=== PATIENT | female | born 1970 | race Caucasian/White ===

== ENCOUNTER 2017-08-04 15:43 | Emergency (ER) | payer OTHER ==
[2017-08-04 15:53] VITALS: BP 103/71; PULSE 82; TEMP 98.4; BMI 27.4
--- NOTE | 2017-08-04 17:15 | PDOC ---
History of Present Illness - General Chief Complaint: Pain Stated Complaint: LEFT FOOT PAIN Time Seen by Provider: 08/04/17 16:10 History Source: Patient Exam Limitations: No Limitations - History of Present Illness Initial Comments: 08/04/17 17:10 CHIEF COMPLAINT: Left generalized ankle pain for two months. HISTORY OF PRESENT ILLNESS: Patient is a 46-year-old female, history of insulin- dependent diabetes , high cholesterol, patient presents with left ankle pain. Denies injury. Patient reports that she is ambulating she feels and instability in her ankle and it feels like it's popping. There is no erythema, edema or deformity, patient with steady gait. Occurred: reports: other (2 months) Severity: Yes: moderate Lower Extremity Pain Location: left: ankle Method of Injury: Yes: unknown Modifying Factors: improves with: None Lower Ext. Injury Location - Specific Injury Location Ankle: left pain Extremity Pain Location - Extremity Pain Location Extremity Pain Locations: left: ankle Past History - Past Medical History Allergies/Adverse Reactions: Allergies Allergy/AdvReac Type Severity Reaction Status Date / Time No Known Allergies Allergy Verified 08/04/17 15:54 Home Medications: Ambulatory Orders Insulin Glargine,Hum.rec.anlog [Lantus Solostar PEN -] 45 units SQ HS 10/23/13 Insulin Lispro [Humalog] 10 unit SQ BID 07/14/16 Lisinopril/Hydrochlorothiazide [Lisinopril-Hctz 20-12.5 mg Tab] 1 each PO ASDIR 08/04/17 Naproxen [Naprosyn -] 500 mg PO BID #14 tablet 08/04/17 COPD: No Diabetes: Yes (IDDM) - Surgical History Cardiac Surgery: Yes (1 stent) - Immunization History Immunization Up to Date: Yes - Suicide/Smoking/Psychosocial Hx Smoking History: Never smoked Have you smoked in the past 12 months: No Hx Alcohol Use: Yes (SOCIAL) Drug/Substance Use Hx: No Substance Use Type: None Review of Systems - Review of Systems Constitutional: No: Symptoms Reported Cardiac (ROS): No: Symptoms Reported ABD/GI: No: Symptoms Reported Musculoskeletal: Yes: Joint Pain. No: Joint Swelling, Muscle Pain, Muscle Weakness, Joint Stiffness Integumentary: No: Symptoms Reported, Bruising, Erythema Neurological: No: Paresthesia, Tingling, Tremors All Other Systems: Reviewed and Negative *Physical Exam - Vital Signs Last Vital Signs Temp Pulse Resp BP Pulse Ox 98.4 F 82 20 103/71 99 08/04/17 15:50 08/04/17 15:50 08/04/17 15:50 08/04/17 15:50 08/04/17 15:50 - Physical Exam General Appearance: Yes: Appropriately Dressed. No: Apparent Distress Respiratory/Chest: positive: Lungs Clear, Normal Breath Sounds Cardiovascular: positive: Regular Rhythm, Regular Rate Extremity: positive: Normal Capillary Refill, Normal Inspection, Normal Range of Motion. negative: Delayed Capillary Refill, Pedal Edema, Swelling, Erythema , Inflammation Integumentary: positive: Normal Color, Dry. negative: Erythema, Swelling, Ecchymosis, Bruising Neurologic: positive: Alert, Normal Mood/Affect, Normal Response, Motor Strength 11/24 ED Treatment Course - ADDITIONAL ORDERS Additional order review: Laboratory Results 08/04/17 16:22 Urine HCG, Qual Negative - RADIOLOGY Radiology Studies Ordered: Category Date Time Status ANKLE & FOOT-LEFT* [RAD] Stat Radiology 08/04/17 17:05 Ordered Medical Decision Making - Medical Decision Making 08/04/17 17:14 A/P: Patient is here for evaluation of chronic pain to left ankle. Patient denies any injury, there is no erythema edema or deformity. Patient admits to wearing flat shoes frequently which may be attributing to the pain. I will send patient for xray. 08/04/17 18:30 Wet read x-rays negative for acute fracture will DC patient home instructed to use shoes with better support, Gasper wrap. Follow up with orthopedics for chronic pain. I discussed the physical exam findings, ancillary test results and final diagnoses with the patient. I answered all of the patient's questions. The patient was satisfied with the care received and felt comfortable with the discharge plan and treatment plan. The patient will call to arrange follow-up and will return to the Emergency Department with any new, persisted or worsening symptoms. *DC/Admit/Observation/Transfer Diagnosis at time of Disposition: Ankle pain Qualifiers: Chronicity: acute Laterality: right Qualified Code(s): M25.571 - Pain in right ankle and joints of right foot - Discharge Dispostion Disposition: HOME Condition at time of disposition: Good Admit: No - Prescriptions Prescriptions: Naproxen [Naprosyn -] 500 mg PO BID #14 tablet - Referrals Referrals: Luis Pena [Primary Care Provider] - - Patient Instructions Printed Discharge Instructions: DI for Ankle Pain Additional Instructions: 1. Please return to the emergency department with any redness, swelling, increased pain, or any other concerns. 2. Keep gasper wrap on or support with more stable shoes. . 3. Please follow up in the office of Dr. Naylor within a week if pain persists. 4. No weightbearing 5. Ice and elevate when at rest. 6. Naprosynfor pain - Post Discharge Activity
== END 2017-08-04 18:40 | disposition home or self-care (01) ==
LOC: JERFT 15:43
DX: M25.572 Pain in left ankle and joints of left foot (principal); E11.9 Type 2 diabetes mellitus without complications; Z79.4 Long term (current) use of insulin; E78.00 Pure hypercholesterolemia, unspecified; Z95.5 Presence of coronary angioplasty implant and graft
CPT/HCPCS: 73610-TC-LT; 73630-TC-LT; 84703; 99281-25

== ENCOUNTER 2017-10-18 22:30 | Emergency (ER) | payer OTHER ==
[2017-10-18 22:34] VITALS: BP 112/74; PULSE 67; TEMP 98.1; BMI 29.2
--- NOTE | 2017-10-18 23:46 | PDOC ---
History of Present Illness - General Chief Complaint: Injury Stated Complaint: RT ANKLE INJURY Time Seen by Provider: 10/18/17 23:34 History Source: Patient - History of Present Illness Initial Comments: 10/19/17 00:26 47-year-old female complaining of twisting right ankle 2 days ago now with progressive pain and swelling. Patient is able to weight-bear on the right leg with pain. No past medical history Past History - Past Medical History Allergies/Adverse Reactions: Allergies Allergy/AdvReac Type Severity Reaction Status Date / Time No Known Allergies Allergy Verified 10/18/17 22:32 Home Medications: Ambulatory Orders Insulin Glargine,Hum.rec.anlog [Lantus Solostar PEN -] 45 units SQ HS 10/23/13 Insulin Lispro [Humalog] 10 unit SQ BID 07/14/16 Lisinopril/Hydrochlorothiazide [Lisinopril-Hctz 20-12.5 mg Tab] 1 each PO ASDIR 08/04/17 Naproxen [Naprosyn -] 500 mg PO BID #14 tablet 08/04/17 COPD: No Diabetes: Yes (IDDM) - Surgical History Cardiac Surgery: Yes (1 stent) - Immunization History Immunization Up to Date: Yes - Suicide/Smoking/Psychosocial Hx Smoking History: Never smoked Have you smoked in the past 12 months: No Hx Alcohol Use: Yes (SOCIAL) Drug/Substance Use Hx: No Substance Use Type: None Review of Systems - Review of Systems Able to Perform ROS?: Yes Is the patient limited [place] proficient: No Constitutional: No: Symptoms Reported, See HPI, Chills, Diaphoresis, Fever, Loss of Appetite, Malaise, Night Sweats, Weakness, Weight Stable, Unintentional Wgt. Loss, Unexplained wgt Loss, Other Musculoskeletal: Yes: Other (right ankle pain and swelling) *Physical Exam - Vital Signs Last Vital Signs Temp Pulse Resp BP Pulse Ox 98.1 F 67 18 112/74 98 10/18/17 22:32 10/18/17 22:32 10/18/17 22:32 10/18/17 22:32 10/18/17 22:32 - Physical Exam General Appearance: Yes: Appropriately Dressed Extremity: positive: Normal Capillary Refill, Normal Inspection, Other (limiter ROM right ankle) Integumentary: positive: Normal Color, Dry, Warm, Other (edema to right ankle. Positive sensation) Neurologic: positive: Fully Oriented, Alert *DC/Admit/Observation/Transfer Diagnosis at time of Disposition: Right ankle sprain Qualifiers: Encounter type: initial encounter Involved ligament of ankle: unspecified ligament Qualified Code(s): S93.401A - Sprain of unspecified ligament of right ankle, initial encounter - Discharge Dispostion Disposition: HOME - Referrals Referrals: Luis Pena [Primary Care Provider] - Jacobo Morales MD [Staff Physician] - Call tomorrow - Patient Instructions Printed Discharge Instructions: Ankle Sprain Additional Instructions: keep ankle elevated. keep in splint follow up with an orthopedic as soon as possible Rest ICE, elevate. - Post Discharge Activity Forms/Work/School Notes: Back to Work
== END 2017-10-19 00:39 | disposition home or self-care (01) ==
LOC: JER 22:30
DX: S93.401A Sprain of unspecified ligament of right ankle, initial encounter (principal); X50.1XXA Overexertion from prolonged static or awkward postures, initial encounter; Y93.89 Activity, other specified; Y92.89 Other specified places as the place of occurrence of the external cause; Y99.8 Other external cause status; E10.9 Type 1 diabetes mellitus without complications; Z79.4 Long term (current) use of insulin; I25.10 Atherosclerotic heart disease of native coronary artery without angina pectoris; Z95.5 Presence of coronary angioplasty implant and graft; I10 Essential (primary) hypertension
CPT/HCPCS: 73610-TC-RT-FY; 73630-TC-RT-FY; 99281-25

== ENCOUNTER 2018-08-28 13:17 | Emergency (ER) | payer OTHER ==
[2018-08-28 13:59] VITALS: BP 112/56; PULSE 80; TEMP 98.2; BMI 25.7
--- NOTE | 2018-08-28 15:30 | PDOC ---
History of Present Illness - General Chief Complaint: Pain Stated Complaint: LT FOOT PAIN Time Seen by Provider: 08/28/18 15:26 - History of Present Illness Initial Comments: 08/28/18 15:29 47-year-old female with a past medical history significant for asthma presents for evaluation of atraumatic onset of left heel pain times one week no systemic symptoms Past History - Past Medical History Allergies/Adverse Reactions: Allergies Allergy/AdvReac Type Severity Reaction Status Date / Time No Known Allergies Allergy Verified 02/21/18 14:16 Home Medications: Ambulatory Orders Insulin Lispro [Humalog] 12 unit SQ BID 07/14/16 Lisinopril [Prinivil] 5 mg PO DAILY 02/21/18 Cephalexin Monohydrate [Keflex -] 500 mg PO Q8H #21 capsule 02/22/18 COPD: No Diabetes: Yes (IDDM) - Surgical History Cardiac Surgery: Yes (1 stent) - Immunization History Immunization Up to Date: Yes - Suicide/Smoking/Psychosocial Hx Smoking History: Never smoked Have you smoked in the past 12 months: No Hx Alcohol Use: No Drug/Substance Use Hx: No Substance Use Type: None Review of Systems - Review of Systems Musculoskeletal: Yes: See HPI, Joint Pain *Physical Exam - Vital Signs Last Vital Signs Temp Pulse Resp BP Pulse Ox 98.2 F 80 18 112/56 L 96 08/28/18 13:56 08/28/18 13:56 08/28/18 13:56 08/28/18 13:56 08/28/18 13:56 - Physical Exam Comments: 08/28/18 15:29 Left foot and ankle skin color and temperature are normal range of motion is full of the ankle without evidence of instability there is tenderness over the medial tubercle of the calcaneus. There are no gross sensorimotor deficits neurovascularly intact. Moderate Sedation - Procedure Monitoring Vital Signs: Procedure Monitoring Vital Signs Temperature 98.2 F 08/28/18 13:56 Pulse Rate 80 08/28/18 13:56 Respiratory Rate 18 08/28/18 13:56 Blood Pressure 112/56 L 08/28/18 13:56 O2 Sat by Pulse Oximetry (%) 96 08/28/18 13:56 *DC/Admit/Observation/Transfer Diagnosis at time of Disposition: Plantar fasciitis - Discharge Dispostion Disposition: HOME Condition at time of disposition: Stable Decision to Admit order: No - Referrals Referrals: Ted Mclaughlin DO [Staff Physician] - - Patient Instructions Printed Discharge Instructions: Plantar Fasciitis, DI for Plantar Fasciitis Additional Instructions: Tylenol and Motrin for pain. Return to the emergency room should symptoms worsen. Follow-up with orthopedic surgery in 1-2 days for further evaluation and treatment options. - Post Discharge Activity
== END 2018-08-28 15:35 | disposition home or self-care (01) ==
LOC: JERFT 13:17
DX: M72.2 Plantar fascial fibromatosis (principal); E11.9 Type 2 diabetes mellitus without complications; Z79.4 Long term (current) use of insulin; Z95.5 Presence of coronary angioplasty implant and graft
CPT/HCPCS: 99281-25

== ENCOUNTER 2018-11-02 16:00 | Emergency (ER) | payer OTHER ==
[2018-11-02 16:09] VITALS: BMI 23.6
[2018-11-02] MEDS ORDERED: ACETAMINOPHEN 500 MG TABLET (FP) PO ONE (16:42)
[2018-11-02 16:52] LABS: BASO % 1.1 % (0-2.0); EOS % 0.6 % (0-4.5); HEMATOCRIT 40.6 % (32.4-45.2); HEMOGLOBIN 13.6 GM/dL (10.7-15.3); LYMPH % 24.3 % (8-40); MCH 29.8 pg (25.7-33.7); MCHC 33.5 g/dl (32.0-36.0); MEAN CELL VOLUME 88.9 fl (80-96); MEAN PLT VOLUME 9.9 fl (7.5-11.1); MONO % 6.7 % (3.8-10.2); NEUT % 67.3 % (42.8-82.8); PLATELET COUNT 277 K/MM3 (134-434); RBC 4.56 M/mm3 (3.60-5.2); RDW 14.9 % (11.6-15.6); WHITE BLOOD COUNT 10.9 K/mm3 (4.0-10.0)
[2018-11-02] MEDS ORDERED: ACETAMINOPHEN 325 MG TABLET (FP) ONE (16:53)
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
[2018-11-02 17:24] LABS: ALBUMIN 3.7 g/dl (3.4-5.0); ALK PHOS 129 U/L (45-117); ANION GAP 9 MMOL/L (8-16); BILIRUBIN,TOTAL 0.2 mg/dL (0.2-1); BLOOD UREA NITROGEN 23 mg/dL (7-18); CALCIUM 9.2 mg/dL (8.5-10.1); CHLORIDE 105 mmol/L (98-107); CO2 26 mmol/L (21-32); CREATININE 0.9 mg/dL (0.55-1.3); GLUCOSE,RANDOM 79 mg/dL (74-106); POTASSIUM 3.5 mmol/L (3.5-5.1); SGOT/AST 14 U/L (15-37); SGPT/ALT 19 U/L (13-61); SODIUM 140 mmol/L (136-145); TOT PROT 7.4 g/dl (6.4-8.2)
[2018-11-02] MEDS ORDERED: IBUPROFEN 600 MG TABLET (FP) PO ONE ×2 (18:04→18:22)
[2018-11-02 18:15] VITALS: BP 107/56; PULSE 72; TEMP 98.2
--- NOTE | 2018-11-04 10:36 | EKG ---
Test Reason : Blood Pressure : / mmHG Vent. Rate : 075 BPM Atrial Rate : 075 BPM P-R Int : 154 ms QRS Dur : 078 ms QT Int : 408 ms P-R-T Axes : 047 074 052 degrees QTc Int : 455 ms NORMAL SINUS RHYTHM NORMAL ECG WHEN COMPARED WITH ECG OF 12-DEC-2014 00:34, NO SIGNIFICANT CHANGE WAS FOUND Confirmed by JUSTO LA MD ([id number]) on 11/04/2018 10:35:39 AM Referred By: Confirmed By:JUSTO LA MD
== END 2018-11-02 18:31 | disposition home or self-care (01) ==
LOC: JER 16:00
DX: R07.89 Other chest pain (principal); I25.10 Atherosclerotic heart disease of native coronary artery without angina pectoris; I10 Essential (primary) hypertension; Z95.5 Presence of coronary angioplasty implant and graft; E11.9 Type 2 diabetes mellitus without complications; Z79.4 Long term (current) use of insulin; E78.00 Pure hypercholesterolemia, unspecified
CPT/HCPCS: 36415; 71046-TC-FY; 80053; 83735; 84484; 84703; 85025; 93005; 93010; 99282-25

== ENCOUNTER 2021-01-25 21:37 | Emergency (ER) | payer OTHER ==
[2021-01-25 22:06] VITALS: BP 109/70; PULSE 77; BMI 27.3
[2021-01-26 00:15] LABS: HCG,QUALITATIVE URINE Negative
[2021-01-26 00:16] LABS: EPI CELLS 17 /uL (0-25.1); HYALINE CASTS 0 /uL (0-3.1); PH,URINE 7.5 (5.0-8.0); URINE APPEARANCE CLOUDY; URINE BACTERIA 925 /uL (0-1359); URINE BILIRUBIN NEGATIVE (NEGATIVE); URINE COLOR YELLOW; URINE GLUCOSE (UA) NEGATIVE (NEGATIVE); URINE KETONE NEGATIVE (NEGATIVE); URINE LEUK ESTERASE 1+ (NEGATIVE); URINE NITRITE NEGATIVE (NEGATIVE); URINE PROTEIN NEGATIVE (NEGATIVE); URINE RBC 23 /uL (0-23.9); URINE WBC 31 /uL (0-25.8)
[2021-01-26 00:22] LABS: BASO % 1.2 % (0-2.0); EOS % 1.5 % (0-4.5); HEMATOCRIT 42.2 % (32.4-45.2); HEMOGLOBIN 14.2 GM/dL (10.7-15.3); LYMPH % 24.9 % (8-40); MCH 29.7 pg (25.7-33.7); MCHC 33.7 g/dl (32.0-36.0); MEAN PLT VOLUME 9.4 fl (7.5-11.1); MONO % 5.7 % (3.8-10.2); NEUT % 66.7 % (42.8-82.8); PLATELET COUNT 298 10^3/uL (134-434); RDW 13.7 % (11.6-15.6); WHITE BLOOD COUNT 9.8 K/mm3 (4.0-10.0)
[2021-01-26 00:47] LABS: ALBUMIN 3.6 g/dl (3.4-5.0); BLOOD UREA NITROGEN 13.4 mg/dL (7-18); CALCIUM 8.8 mg/dL (8.5-10.1)
[2021-01-26 00:50] LABS: CREATININE 0.7 mg/dL (0.55-1.3)
[2021-01-26 00:52] LABS: BILIRUBIN,TOTAL 0.3 mg/dL (0.2-1); TOT PROT 7.7 g/dl (6.4-8.2)
== END 2021-01-26 01:49 | disposition home or self-care (01) ==
LOC: JER 21:37
DX: R10.32 Left lower quadrant pain (principal)
CPT/HCPCS: 36415; 74177-TC; 80053; 81003; 83690; 84703; 85025; 87077; 87086; 99285-25

== ENCOUNTER → 2021-03-24 | Day surgery (SDC) | payer OTHER | END | disposition home or self-care (01) | LOC: FMAMMOTONE 11:55 | PROVIDERS: ATTEND Obstetrics & Gynecology | PROC: 0HBT3ZX Excision of Right Breast, Percutaneous Approach, Diagnostic (ICD-10-PCS; principal; 2021-03-24) | DX: N60.21 Fibroadenosis of right breast (principal); N60.31 Fibrosclerosis of right breast; N64.89 Other specified disorders of breast; R92.0 Mammographic microcalcification found on diagnostic imaging of breast | CPT/HCPCS: 19081; 76098-TC-FY; 87899; A4648 ==

== ENCOUNTER 2023-01-23 12:39 | Emergency (ER) | payer OTHER ==
[2023-01-23 12:56] VITALS: BP 112/70; PULSE 70; RESP 19; TEMP 98.3; BMI 29.2
[2023-01-23] MEDS ORDERED: ACETAMINOPHEN 325 MG TABLET (FP) PO ONE (13:19)
[2023-01-23] MEDS ORDERED: ACETAMINOPHEN 325 MG TABLET (FP) ONE (13:21)
== END 2023-01-23 14:50 | disposition home or self-care (01) ==
LOC: JERFT 12:39
DX: S92.912A Unspecified fracture of left toe(s), initial encounter for closed fracture (principal); R22.42 Localized swelling, mass and lump, left lower limb; W22.8XXA Striking against or struck by other objects, initial encounter; Y92.009 Unspecified place in unspecified non-institutional (private) residence as the place of occurrence of the external cause
CPT/HCPCS: 73660-TC-LT-FY; 99283-25

== ENCOUNTER 2023-07-20 21:04 | Emergency (ER) | payer OTHER ==
[2023-07-20 21:31] VITALS: BP 119/76; PULSE 75; RESP 18; TEMP 98.4; BMI 29.2
[2023-07-20 22:59] LABS: HCG,QUALITATIVE URINE Negative
[2023-07-20 23:12] LABS: EPI CELLS 3 /uL (0-25.1); HYALINE CASTS 3 /uL (0-3.1); PH,URINE 5.5 (5.0-8.0); URINE APPEARANCE CLEAR; URINE BACTERIA >9,000 /uL (0-1359); URINE BILIRUBIN NEGATIVE (NEGATIVE); URINE COLOR YELLOW; URINE GLUCOSE (UA) NEGATIVE (NEGATIVE); URINE KETONE NEGATIVE (NEGATIVE); URINE LEUK ESTERASE 1+ (NEGATIVE); URINE NITRITE POSITIVE (NEGATIVE); URINE PROTEIN NEGATIVE (NEGATIVE); URINE RBC 9 /uL (0-23.9); URINE UROBILINOGEN 0.2 mg/dL (0.2-1.0); URINE WBC 507 /uL (0-25.8)
[2023-07-21] MEDS ORDERED: SULFAMETHOXAZOLE/TRIMETHOPRIM 800MG/160MG D.S. TABLET PO ONE (00:08)
[2023-07-21] MEDS ORDERED: FLUCONAZOLE 50 MG TABLET PO ONE (00:09)
[2023-07-21] MEDS ORDERED: SULFAMETHOXAZOLE/TRIMETHOPRIM 800MG/160MG D.S. TABLET ONE (00:28)
[2023-07-21] MEDS ORDERED: FLUCONAZOLE 150 MG TABLET PO ONE (00:28)
== END 2023-07-21 00:57 | disposition home or self-care (01) ==
LOC: JER 21:04
DX: R30.0 Dysuria (principal); N39.0 Urinary tract infection, site not specified; L29.2 Pruritus vulvae; R10.32 Left lower quadrant pain
CPT/HCPCS: 36415; 81003; 84703; 87086; 87186; 87491; 87591; 87661; 99283-25

== ENCOUNTER 2024-03-12 15:17 | Emergency (ER) | payer OTHER ==
[2024-03-12 15:37] VITALS: BP 112/72; PULSE 81; RESP 17; TEMP 98.6; BMI 29.2
[2024-03-12] MEDS ORDERED: diazePAM 5 MG TABLET ONE (17:32)
[2024-03-12] MEDS ORDERED: KETOROLAC TROMETHAMINE 30 MG/1 ML VIAL ONE (17:32)
[2024-03-12] MEDS ORDERED: LIDOCAINE 4% PATCH TP ONE (17:32)
[2024-03-12 17:34] LABS: PH,URINE 5.5 (5.0-8.0); URINE APPEARANCE CLEAR; URINE BILIRUBIN NEGATIVE (NEGATIVE); URINE COLOR YELLOW; URINE GLUCOSE (UA) NEGATIVE (NEGATIVE); URINE KETONE TRACE (NEGATIVE); URINE LEUK ESTERASE NEGATIVE (NEGATIVE); URINE NITRITE NEGATIVE (NEGATIVE); URINE PROTEIN TRACE (NEGATIVE)
[2024-03-12] MEDS: LIDOCAINE 5% TOPICAL PATCH TP ONE (17:37)
[2024-03-12] MEDS: KETOROLAC TROMETHAMINE 30 MG/1 ML VIAL IM ONE (17:38)
[2024-03-12] MEDS: diazePAM 5 MG TABLET PO ONE (17:38)
[2024-03-12] MEDS ORDERED: LIDOCAINE PATCH REMOVAL MC SCH (22:00)
== END 2024-03-12 18:39 | disposition home or self-care (01) ==
LOC: JERFT 15:17
PROC: 3E0233Z Introduction of Anti-inflammatory into Muscle, Percutaneous Approach (ICD-10-PCS; principal; 2024-03-12)
DX: M54.50 Low back pain, unspecified (principal)
CPT/HCPCS: 72100-TC-FY; 81003; 99284-25

== ENCOUNTER 2024-04-05 20:40 | Emergency (ER) | payer OTHER ==
[2024-04-05 21:28] VITALS: BP 117/73; PULSE 97; RESP 18; TEMP 99.8; BMI 27.4
[2024-04-05 23:10] LABS: HIV INTERPRETATION NEGATIVE (NEGATIVE)
[2024-04-05] MEDS ORDERED: ACETAMINOPHEN 500 MG TABLET (FP) ONE (23:22)
[2024-04-05] MEDS: ACETAMINOPHEN 500 MG TABLET (FP) PO ONE (23:24)
== END 2024-04-05 23:50 | disposition home or self-care (01) ==
LOC: JER 20:40
DX: J30.2 Other seasonal allergic rhinitis (principal); Z20.822 Contact with and (suspected) exposure to COVID-19
CPT/HCPCS: 0241U-QW; 36415; 86803; 87389; 87651; 99283-25

== ENCOUNTER 2025-04-14 16:21 | Emergency (ER) | payer OTHER ==
[2025-04-14 16:33] VITALS: BP 113/69; PULSE 88; RESP 18; TEMP 98.4; BMI 28.3
[2025-04-14] MEDS ORDERED: KETOROLAC TROMETHAMINE 30 MG/1 ML VIAL ONE (18:09)
[2025-04-14] MEDS: KETOROLAC TROMETHAMINE 30 MG/1 ML VIAL IM ONE (18:17)
== END 2025-04-14 18:41 | disposition home or self-care (01) ==
LOC: JERFT 16:21
PROC: 3E0233Z Introduction of Anti-inflammatory into Muscle, Percutaneous Approach (ICD-10-PCS; principal; 2025-04-14)
DX: S76.201A Unspecified injury of adductor muscle, fascia and tendon of right thigh, initial encounter (principal); W18.40XA Slipping, tripping and stumbling without falling, unspecified, initial encounter; Y92.002 Bathroom of unspecified non-institutional (private) residence as the place of occurrence of the external cause
CPT/HCPCS: 96372; 99284-25